=== PATIENT | male | born 1955 | race Hispanic/Latino ===

== ENCOUNTER 2017-07-14 13:22 | Day surgery (SDC) | payer BC, OTHER ==
[2017-07-13 14:09] VITALS: BMI 29.4
[2017-07-14 14:03] LABS: BASO # 0.03 K/mm3 (0.0-2.0); BASO % 0.3 % (0.0-3.0); EOS # 0.2 (0.0-0.7); EOS % 1.6 % (1.5-5.0); GRAN # 8.19 (1.4-6.5); GRAN % 72.2 % (50.0-68.0); HEMOGLOBIN 16.3 g/dL (14.0-18.0); LYMPH # 2.1 (1.2-3.4); LYMPH % 18.6 % (22.0-35.0); MEAN CELL VOLUME 91.3 fl (80.0-105.0); MEAN CORPUSCULAR HEMOGLOBIN 32.3 pg (25.0-35.0); MEAN CORPUSCULAR HGB CONC 35.4 g/dl (31.0-37.0); MEAN PLATELET VOLUME 9.1 fl (7.0-11.0); MONO # 0.8 (0.1-0.6); MONO % 7.3 % (1.0-6.0); RBC 5.05 10^6/uL (3.5-6.1); RED CELL DISTRIBUTION WIDTH 13.3 % (11.5-14.5); WHITE BLOOD COUNT 11.3 10^3/ul (4.5-11.0)
[2017-07-14 14:15] LABS: BLOOD UREA NITROGEN 16 mg/dL (7-21); CALCIUM 10.2 mg/dL (8.4-10.5); GFR AFRICAN-AMERICAN > 60; GFR NON-AFRICAN AMERICAN > 60
[2017-07-14 14:24] LABS: INR 0.99 (0.93-1.08); PARTIAL THROMBOPLASTIN TIME 32.8 Seconds (25.1-36.5); PROTHROMBIN TIME 11.3 SECONDS (9.4-12.5)
[2017-07-14] MEDS ORDERED: Midazolam 2 MG/2 ML VIAL ONE (15:20)
[2017-07-14] MEDS ORDERED: Lidocaine 1% Inj (20ml) ONE (15:20)
[2017-07-14] MEDS ORDERED: Oxycodone/Acetaminophen 5/325 mg Tab PO PRN (16:49)
[2017-07-14] MEDS ORDERED: Sodium Chloride 0.45% 1,000 ML IV SCH (17:00)
[2017-07-14 17:48] VITALS: BP 143/95; PULSE 83; RESP 20; TEMP 97; O2SAT 92
--- NOTE | 2017-07-14 19:25 | CT ---
PROCEDURE: CT guided bone marrow aspiration and biopsy. HISTORY: Fever of unknown origin. Bone marrow aspiration biopsy PHYSICIAN(S): Josué Hidalgo MD. TECHNIQUE: The relative risks and indications of the procedure were explained to the patient and consent obtained. The patient was placed prone on the CT scanner and preliminary images through the pelvis obtained. Conscious sedation and monitoring were provided throughout the procedure by a nurse. The visualized bones are unremarkable is noncontrast images. Degenerate changes are seen.. A posterior oblique approach was selected and the area prepped and draped in the usual sterile fashion. 1% Xylocaine was used to anesthetize the skin and soft tissues. A 17-gauge guiding needle was advanced into the lateral segment of the left lobe of the liver. Its position was confirmed with CT. Using coaxial technique, multiple core biopsies were obtained. The postprocedure images show no evidence of significant hemorrhage 15 gauge on control bone biopsy needle was advanced to the right posterior superior iliac spine. Its position was confirmed with CT. The needle was advanced through the cortex and bone marrow aspiration performed. Cultures were also sent. Repaired by Dr. christie. Next a long core biopsy was performed using the on control needle. The patient tolerated the procedure well. . IMPRESSION: 1. CT-guided bone marrow aspiration and biopsy as described above. Cultures were also sent.
--- NOTE | 2017-07-16 08:23 | PROCN ---
DATE: 07/14/2017 RATIONALE FOR THE PROCEDURE: This is a 62-year-old white male who has having recurrent fevers with night sweats that has been going on for several months intermittently associated with fevers and night sweats, which has also been getting erythematous rashes, specifically located around his thighs and in the buttock areas. The patient has had prior admission at [facility] in 2017 where he had hectic temperatures and an extensive and exhaustive workup was done by the Infectious Disease services under the supervision of Dr. Lund at that time. Concern at this point was whether the fever of unknown origin was related to an underlying neoplastic process. The patient has had scans of the neck, chest, abdomen and pelvis done and he is here for bone marrow aspiration biopsy and cultures to be done for the same. After consent was obtained from the patient and conscious sedation was provided by the nurse with the help of Dr. Josué Hidalgo, procedure was done from the right posterior superior iliac crest after the patient was given IV conscious sedation and local anesthesia with 1% Xylocaine. A 17-gauge needle was advanced into the right posterior superior iliac spine and multiple core biopsies were obtained. In addition to that, bone marrow samples were obtained for routine cultures, AFB and fungus. Bone marrow touch preps were done and the aspirate was sent for flow cytometric analysis for various studies including but not to exclude any hematologic disorders as well. The patient also would have cytogenetics as appropriate based on the initial H&E stains. Iron studies have also been requested. We will look out for granulomatous diseases as well on the bone marrow aspiration biopsy. The patient tolerated the procedure well without any untoward complications. The patient will be going back to recovery from the CAT scan. Once he recovers from the conscious sedation, he will be allowed to be discharged and go home. Followup will be given to see us in about a week's time by which time we should have most of the studies available for us. Jeff Nava MD LEANNE
== END 2017-07-14 18:40 | disposition home or self-care (01) ==
LOC: SDS 13:22
PROVIDERS: ATTEND Radiology Vascular & Interventional Radiology
DX: R50.9 Fever, unspecified (principal); I10 Essential (primary) hypertension; R61 Generalized hyperhidrosis
CPT/HCPCS: 36415; 38221; 80048; 85025; 85610; 85730; 87103; 87116; 87210; J2250; J2405; J3010; J7030